=== PATIENT | male | born 1975 | race American Indian/Alaskan Native ===

== ENCOUNTER 2017-04-13 10:55 | Emergency (ER) | payer MEDICAID ==
[2017-04-13 12:02] LABS: ACETAMINOPHEN < 10 ug/mL (10-30)
--- NOTE | 2017-04-13 12:13 | EDM.PDOCBH ---
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 Pt stated he does not wont to live anymore because his girlfriend broke up with him and has already a new boyfriend but he does not have a girlfriend. Pt denies any acute medical issues, did not eat in the past few days. BP 144/93 RR 18 Pulse ox 98% Temp 36.9 pulse 98 Onset: Today Onset Date: 04/13/17 Onset Time: 08:00 Duration: Other (h/o depression) Location: Reports: Other (psych) Quality: Reports: Other (suicidal ideation) - Related Data Allergies Allergy/AdvReac Type Severity Reaction Status Date / Time No Known Allergies Allergy Verified 04/13/17 11:19 Home Meds: Home Meds Albuterol Sulfate [Proair Hfa] 2 puff INH BID 04/13/17 [History] Formoterol/Mometasone [Dulera 100 MCG/5 MCG] 2 puff INH BID 04/13/17 [History] Past Medical History Respiratory History: Reports: COPD Psychiatric History: Reports: Depression Social & Family History - Tobacco Use Smoking Status *Q: Former Smoker Used Tobacco, but Quit: Yes Month Tobacco Last Used: QUIT IN MAY 2016 - Caffeine Use Caffeine Use: Reports: Coffee, Energy Drinks, Soda - Recreational Drug Use Recreational Drug Use: No ED ROS GENERAL - Review of Systems Review Of Systems: See Below Constitutional: Reports: No Symptoms HEENT: Reports: No Symptoms Respiratory: Reports: No Symptoms Cardiovascular: Reports: No Symptoms Endocrine: Reports: No Symptoms GI/Abdominal: Reports: No Symptoms : Reports: No Symptoms Musculoskeletal: Reports: No Symptoms Skin: Reports: No Symptoms Neurological: Reports: No Symptoms Psychiatric: Reports: Depression, Suicidal Ideation Hematologic/Lymphatic: Reports: No Symptoms Immunologic: Reports: No Symptoms ED EXAM, BEHAVIORAL HEALTH - Physical Exam Exam: See Below Exam Limited By: No Limitations General Appearance: Alert, WD/WN, No Apparent Distress Eye Exam: Bilateral Eye: Normal Inspection Ears: Normal External Exam Nose: Normal Inspection Throat/Mouth: Normal Inspection Head: Atraumatic, Normocephalic Neck: Normal Inspection, Supple, Non-Tender Respiratory/Chest: No Respiratory Distress, Lungs Clear, Normal Breath Sounds Cardiovascular: Normal Peripheral Pulses, Regular Rate, Rhythm GI/Abdominal: Normal Bowel Sounds, Soft, Non-Tender, No Organomegaly (Male) Exam: Deferred Rectal (Males) Exam: Deferred Back Exam: Normal Inspection, Full Range of Motion Extremities: Normal Inspection, Normal Range of Motion, Non-Tender, No Pedal Edema Neurological: Alert, Normal Mood/Affect, CN II-XII Intact, Normal Cognition, Normal Gait Psychiatric: Alert, Normal Affect, Normal Cognition, Normal Mood Skin Exam: Warm, Dry, Intact, Normal color, No rash COURSE, BEHAVIORAL HEALTH COMP - Course Vital Signs: Last Vital Signs Temp 37.1 C 04/13/17 17:39 Pulse 73 04/13/17 17:39 Resp 18 04/13/17 17:39 BP 154/84 H 04/13/17 17:39 Pulse Ox 98 04/13/17 17:39 41 years old w sandi came to the ed with his mom after he was found at his home with a belt around his neck. Pt stated he does not wont to live anymore because his girlfriend broke up with him and has already a new boyfriend but he does not have a girlfriend. Pt denies any acute medical issues, did not eat in the past few days. BP 144/93 RR 18 Pulse ox 98% Temp 36.9 pulse 98 PE: WNWD W M NAD, poor historian, refuses to talk, Mom is present, gave HPI Labs: TSH .32 ETOH 0.10 UDS was neg Impression: Suicidal ideation, ETOH abuse ED course: [facility] consultation, recommending admitting to a psych Hospital Plan; trans fere by police to [facility] by the Police. Reexam: Pt was stable while here in the ed Orders, Labs, Meds: Laboratory Tests 04/13/17 04/13/17 04/13/17 Range/Units 11:40 11:40 11:40 WBC 7.2 (4.5-12.0) X10-3/uL RBC 4.78 (4.30-5.75) x10(6)uL Hgb 14.6 (11.5-15.5) g/dL Hct 42.6 (30.0-51.3) % MCV 89.1 (80-96) fL MCH 30.5 (27.7-33.6) pg MCHC 34.2 (32.2-35.4) g/dL RDW 12.4 (11.5-15.5) % Plt Count 310 (125-369) X10(3)uL MPV 7.3 L (7.4-10.4) fL Neut % (Auto) 78.0 (46-82) % Lymph % (Auto) 13.6 (13-37) % [place] % (Auto) 7.4 (4-12) % Eos % (Auto) 1 (1.0-5.0) % Baso % (Auto) 0 (0-2) % Neut # (Auto) 5.7 (1.6-8.3) # Lymph # (Auto) 1.0 (0.6-5.0) # [place] # (Auto) 0.5 (0.0-1.3) # Eos # (Auto) 0.0 (0.0-0.8) # Baso # (Auto) 0.0 (0.0-0.2) # Sodium 135 (135-145) mmol/L Potassium 3.7 (3.5-5.3) mmol/L Chloride 100 (100-110) mmol/L Carbon Dioxide 24 (23-29) mmol/L BUN 7 (5-20) mg/dL Creatinine 0.7 (0.6-1.3) mg/dL Est Cr Clr Drug Dosing 145.44 mL/min Estimated GFR (MDRD) > 60 (>60) BUN/Creatinine Ratio 10.0 (9-20) Glucose 142 H (80-116) mg/dL Calcium 8.9 (8.6-10.2) mg/dL TSH, Ultra Sensitive 0.32 L (0.4-5.5) nlU/mL Salicylates < 5.0 L (5.0-25.0) mg/dL Urine Opiates Screen (NEGATIVE) Ur Oxycodone Screen (NEGATIVE) Ur Propoxyphene Screen (NEGATIVE) Acetaminophen < 10 L (10-30) ug/mL Ur Barbituates Screen (NEGATIVE) Ur Tricyclics Screen (NEGATIVE) Ur Phencyclidine Scrn (NEGATIVE) Ur Amphetamine Screen (NEGATIVE) Urine MDMA Screen (NEGATIVE) U Benzodiazepines Scrn (NEGATIVE) U Cocaine Metab Screen (NEGATIVE) U Marijuana (THC) Screen (NEGATIVE) Ethyl Alcohol (<0.01) % 04/13/17 04/13/17 Range/Units 11:40 13:25 WBC (4.5-12.0) X10-3/uL RBC (4.30-5.75) x10(6)uL Hgb (11.5-15.5) g/dL Hct (30.0-51.3) % MCV (80-96) fL MCH (27.7-33.6) pg MCHC (32.2-35.4) g/dL RDW (11.5-15.5) % Plt Count (125-369) X10(3)uL MPV (7.4-10.4) fL Neut % (Auto) (46-82) % Lymph % (Auto) (13-37) % [place] % (Auto) (4-12) % Eos % (Auto) (1.0-5.0) % Baso % (Auto) (0-2) % Neut # (Auto) (1.6-8.3) # Lymph # (Auto) (0.6-5.0) # [place] # (Auto) (0.0-1.3) # Eos # (Auto) (0.0-0.8) # Baso # (Auto) (0.0-0.2) # Sodium (135-145) mmol/L Potassium (3.5-5.3) mmol/L Chloride (100-110) mmol/L Carbon Dioxide (23-29) mmol/L BUN (5-20) mg/dL Creatinine (0.6-1.3) mg/dL Est Cr Clr Drug Dosing mL/min Estimated GFR (MDRD) (>60) BUN/Creatinine Ratio (9-20) Glucose (80-116) mg/dL Calcium (8.6-10.2) mg/dL TSH, Ultra Sensitive (0.4-5.5) nlU/mL Salicylates (5.0-25.0) mg/dL Urine Opiates Screen Negative (NEGATIVE) Ur Oxycodone Screen Negative (NEGATIVE) Ur Propoxyphene Screen Negative (NEGATIVE) Acetaminophen (10-30) ug/mL Ur Barbituates Screen Negative (NEGATIVE) Ur Tricyclics Screen Negative (NEGATIVE) Ur Phencyclidine Scrn Negative (NEGATIVE) Ur Amphetamine Screen Negative (NEGATIVE) Urine MDMA Screen Negative (NEGATIVE) U Benzodiazepines Scrn Negative (NEGATIVE) U Cocaine Metab Screen Negative (NEGATIVE) U Marijuana (THC) Screen Negative (NEGATIVE) Ethyl Alcohol 0.10 H (<0.01) % Departure - Departure Time of Disposition: 18:00 Disposition: DC/Tfer to Psych Hosp/Unit 65 Condition: Fair Clinical Impression: Suicidal ideation - Discharge Information Referrals: Liza Johnson NP [Primary Care Provider] - Forms: ED Department Discharge
== END 2017-04-13 17:40 ==
LOC: FB.ED 10:55
DX: R45.851 Suicidal ideations (principal); F10.10 Alcohol abuse, uncomplicated; J44.9 Chronic obstructive pulmonary disease, unspecified; Z87.891 Personal history of nicotine dependence
CPT/HCPCS: 36415; 80048; 80305; 84443; 85025; 99285; G0480

== ENCOUNTER 2017-06-06 13:04 | Emergency (ER) | payer MEDICAID ==
[2017-06-06] MEDS ORDERED: Acetaminophen 500 MG Tab PO ONE (13:18)
[2017-06-06] MEDS ORDERED: Dicyclomine 10 MG Cap PO ONE (13:18)
--- NOTE | 2017-06-06 13:25 | EDM.PDOC ---
ED HPI GENERAL MEDICAL PROBLEM - General Chief Complaint: Abdominal Pain Stated Complaint: ABD PAIN Time Seen by Provider: 06/06/17 13:15 Source of Information: Reports: Patient, Old Records, RN History Limitations: Reports: No Limitations - History of Present Illness INITIAL COMMENTS - FREE TEXT/NARRATIVE: 41 yo male presents with LUQ abdominal pain that began about midnight last night. He had transient nausea upon awakening only. His bowel sounds seemed to be hyperactive. He has not eaten today. No fever. His morning BM was formed, but had some liquid in it. No known exposures. No blood in his stools. No hx of the same. He is missing work due to the pain. No self tx. He has no pHx of any abdominal surgeries. Onset: Gradual Onset Date: 06/06/17 Onset Time: 00:00 Duration: Hour(s):, Constant Location: Reports: Abdomen Quality: Reports: Dull Severity: Moderate Improves with: Reports: Rest (lying down) Worsens with: Reports: Movement Context: Reports: Other (unknown) Associated Symptoms: Reports: Loss of Appetite, Nausea/Vomiting (nausea now resolved, no vomiting). 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: Other (see below) (none) Left Abdominal Pain Score (Numeric/FACES): 4 - Related Data Allergies Allergy/AdvReac Type Severity Reaction Status Date / Time No Known Allergies Allergy Verified 06/06/17 13:11 Home Meds: Home Meds Albuterol Sulfate [Proair Hfa] 2 puff INH BID 04/13/17 [History] Formoterol/Mometasone [Dulera 100 MCG/5 MCG] 2 puff INH BID 04/13/17 [History] Past Medical History Respiratory History: Reports: COPD Psychiatric History: Reports: Depression Social & Family History - Tobacco Use Smoking Status *Q: Former Smoker Used Tobacco, but Quit: Yes Month Tobacco Last Used: quit 1 year ago - Caffeine Use Caffeine Use: Reports: Coffee - Recreational Drug Use Recreational Drug Use: No ED ROS GENERAL - Review of Systems Review Of Systems: See Below Constitutional: Reports: No Symptoms HEENT: Reports: No Symptoms Respiratory: Reports: No Symptoms Cardiovascular: Reports: No Symptoms Endocrine: Reports: No Symptoms GI/Abdominal: Reports: Abdominal Pain, Decreased Appetite, Nausea. Denies: Black Stool, Bloody Stool, Constipation, Diarrhea, Difficulty Swallowing, Distension, Flatus, Hematemesis, Hematochezia, Melena, Stool Incontinence, Vomiting : Reports: No Symptoms Musculoskeletal: Reports: No Symptoms Skin: Reports: No Symptoms Neurological: Reports: No Symptoms Psychiatric: Reports: No Symptoms ED EXAM, GI/ABD - Physical Exam Exam: See Below Exam Limited By: No Limitations General Appearance: Alert, WD/WN, No Apparent Distress Eyes: Bilateral: Normal Appearance Ears: Normal External Exam, Normal Canal, Hearing Grossly Normal, Normal TMs Nose: Normal Inspection, Normal Mucosa, No Blood Throat/Mouth: Normal Inspection, Normal Lips, Normal Teeth, Normal Oropharynx, Normal Voice, No Airway Compromise Head: Atraumatic, Normocephalic Neck: Normal Inspection, Supple Respiratory/Chest: No Respiratory Distress, Lungs Clear, Normal Breath Sounds, No Accessory Muscle Use Cardiovascular: Regular Rate, Rhythm, No Edema GI/Abdominal Exam: Soft, No Distention, No Mass, Tender (mild epigastric to LUQ tenderness.), Abnormal Bowel Sounds (increased). No: Guarding, Rigid, Rebound Back Exam: Normal Inspection. No: CVA Tenderness (R), CVA Tenderness (L) Extremities: Normal Inspection, Normal Range of Motion, Non-Tender, No Pedal Edema Neurological: Alert, Oriented, CN II-XII Intact, Normal Cognition, Normal Gait, Other (both upper extrems tremulous) Psychiatric: Normal Affect, Normal Mood Skin Exam: Warm, Dry, Intact, Normal Color, No Rash Lymphatic: No Adenopathy Course - Vital Signs Text/Narrative:: Acetaminophen 1000 mg po, dicyclomine 30 mg po Last Recorded V/S: Last Vital Signs Temp 36.8 C 06/06/17 13:15 Pulse 78 06/06/17 13:15 Resp 18 06/06/17 13:15 BP 152/90 H 06/06/17 13:15 Pulse Ox 97 06/06/17 13:15 - Orders/Labs/Meds Labs: Laboratory Tests 06/06/17 06/06/17 06/06/17 Range/Units 13:25 13:25 13:27 WBC 5.4 (4.5-12.0) X10-3/uL RBC 4.86 (4.30-5.75) x10(6)uL Hgb 14.6 (11.5-15.5) g/dL Hct 43.7 (30.0-51.3) % MCV 89.8 (80-96) fL MCH 30.0 (27.7-33.6) pg MCHC 33.4 (32.2-35.4) g/dL RDW 14.0 (11.5-15.5) % Plt Count 211 (125-369) X10(3)uL C-Reactive Protein (0.5-0.9) mg/dL Amylase (25-115) U/L Urine Color Yellow (YELLOW) Urine Appearance Clear (CLEAR) Urine pH 8.0 H (5.0-6.5) Ur Specific [place] 1.010 (1.010-1.025) Urine Protein Negative (NEGATIVE) mg/dL Urine Glucose (UA) Normal (NEGATIVE) mg/dL Urine Ketones 15 H (NEGATIVE) mg/dL Urine Occult Blood Negative (NEGATIVE) Urine Nitrite Negative (NEGATIVE) Urine Bilirubin Negative (NEGATIVE) Urine Urobilinogen Normal (NEGATIVE) mg/dL Ur Leukocyte Esterase Negative (NEGATIVE) Urine RBC Not seen (0) Urine WBC 0-5 (0) Ur Squamous Epith Cells Rare (NS,R,O) Urine Bacteria Rare H (NS) Urine Opiates Screen Negative (NEGATIVE) Ur Oxycodone Screen Negative (NEGATIVE) Ur Propoxyphene Screen Negative (NEGATIVE) Ur Barbituates Screen Negative (NEGATIVE) Ur Tricyclics Screen Negative (NEGATIVE) Ur Phencyclidine Scrn Negative (NEGATIVE) Ur Amphetamine Screen Negative (NEGATIVE) Urine MDMA Screen Negative (NEGATIVE) U Benzodiazepines Scrn Negative (NEGATIVE) U Cocaine Metab Screen Negative (NEGATIVE) U Marijuana (THC) Screen Negative (NEGATIVE) 06/06/17 06/06/17 Range/Units 13:27 13:27 WBC (4.5-12.0) X10-3/uL RBC (4.30-5.75) x10(6)uL Hgb (11.5-15.5) g/dL Hct (30.0-51.3) % MCV (80-96) fL MCH (27.7-33.6) pg MCHC (32.2-35.4) g/dL RDW (11.5-15.5) % Plt Count (125-369) X10(3)uL C-Reactive Protein < 0.2 L (0.5-0.9) mg/dL Amylase 23 L (25-115) U/L Urine Color (YELLOW) Urine Appearance (CLEAR) Urine pH (5.0-6.5) Ur Specific [place] (1.010-1.025) Urine Protein (NEGATIVE) mg/dL Urine Glucose (UA) (NEGATIVE) mg/dL Urine Ketones (NEGATIVE) mg/dL Urine Occult Blood (NEGATIVE) Urine Nitrite (NEGATIVE) Urine Bilirubin (NEGATIVE) Urine Urobilinogen (NEGATIVE) mg/dL Ur Leukocyte Esterase (NEGATIVE) Urine RBC (0) Urine WBC (0) Ur Squamous Epith Cells (NS,R,O) Urine Bacteria (NS) Urine Opiates Screen (NEGATIVE) Ur Oxycodone Screen (NEGATIVE) Ur Propoxyphene Screen (NEGATIVE) Ur Barbituates Screen (NEGATIVE) Ur Tricyclics Screen (NEGATIVE) Ur Phencyclidine Scrn (NEGATIVE) Ur Amphetamine Screen (NEGATIVE) Urine MDMA Screen (NEGATIVE) U Benzodiazepines Scrn (NEGATIVE) U Cocaine Metab Screen (NEGATIVE) U Marijuana (THC) Screen (NEGATIVE) Meds: Medications Discontinued Medications Generic Name Dose Route Start Last Admin Trade Name Ruizq PRN Reason Stop Dose Admin Acetaminophen 1,000 mg 06/06/17 13:18 06/06/17 13:28 Tylenol Extra Strength PO 06/06/17 13:19 1,000 mg ONETIME ONE Administration Dicyclomine HCl 30 mg 06/06/17 13:18 06/06/17 13:28 Bentyl PO 06/06/17 13:19 30 mg ONETIME ONE Administration Departure - Departure Time of Disposition: 14:00 Disposition: Home, Self-Care 01 Condition: Good Clinical Impression: Abdominal pain Qualifiers: Abdominal location: left upper quadrant Qualified Code(s): R10.12 - Left upper quadrant pain - Discharge Information Referrals: Yonas Edmondson PA [Primary Care Provider] - Forms: ED Department Discharge
== END 2017-06-06 13:58 | disposition home or self-care (01) ==
LOC: FB.ED 13:04
DX: R10.12 Left upper quadrant pain (principal); Z87.891 Personal history of nicotine dependence
CPT/HCPCS: 36415; 80305; 81001; 82150; 85027; 86140; 99284; A9270

== ENCOUNTER 2017-07-15 15:33 | Observation (INO) | payer MEDICAID ==
[2017-07-15] MEDS ORDERED: Sodium Chloride 0.9% 1,000 ML IV ONE ×2 (15:46→17:40)
[2017-07-15] MEDS ORDERED: Thiamine 200 MG/2 ML MDV IM STA (15:47)
[2017-07-15] MEDS: Sodium Chloride 0.9% 10 ML Syringe FLUSH PRN (16:05)
[2017-07-15 16:34] LABS: ACETAMINOPHEN < 2 ug/mL (10-30)
--- NOTE | 2017-07-15 17:46 | EDM.PDOCBH ---
ED HPI GENERAL MEDICAL PROBLEM - General Chief Complaint: Drug or Alcohol Abuse Stated Complaint: INTOXICATED Time Seen by Provider: 07/15/17 15:41 Source of Information: Reports: Patient, Family History Limitations: Reports: Intoxication - History of Present Illness INITIAL COMMENTS - FREE TEXT/NARRATIVE: 41 y.o.w.m with a h/o ETOH abuse came to the ed with his parents due to suicidal attempt by heavy ETOH intake. Pt came by wheel chair to the ed, uncooperative. As per parents, his girlfriend quit on him one week ago, which made him to drink more ETOH. BP 162/100 RR 16 Pulse 116 Temp 36.4 O2 sat 96% on RA Onset Date: 07/15/17 Onset Time: 08:00 Duration: Day(s):, Getting Worse Location: Reports: Generalized Severity: Severe (intoxicated) Context: Reports: Other (Pt came to the ed with his parents because of suicidal attempt by drinking ETOH) - Related Data Allergies Allergy/AdvReac Type Severity Reaction Status Date / Time No Known Allergies Allergy Verified 07/15/17 16:53 Home Meds: Home Meds Albuterol [Ventolin HFA] 2 inhalation INH Q4H PRN 07/15/17 [History] Fluticasone/Salmeterol [Fluticasone-Salmeterol 113-14] 1 inh INH BID 07/15/17 [ History] Past Medical History Respiratory History: Reports: COPD Psychiatric History: Reports: Depression Social & Family History - Tobacco Use Smoking Status *Q: Never Smoker Used Tobacco, but Quit: Yes Month Tobacco Last Used: quit 1 year ago - Caffeine Use Caffeine Use: Reports: Coffee - Recreational Drug Use Recreational Drug Use: No ED ROS GENERAL - Review of Systems Review Of Systems: Unable To Obtain (pt refused to talk) ED EXAM, BEHAVIORAL HEALTH - Physical Exam Exam: See Below Exam Limited By: Intoxication General Appearance: Alert, WD/WN, Mild Distress Eye Exam: Bilateral Eye: Normal Inspection Ears: Normal External Exam Nose: Normal Inspection Throat/Mouth: Normal Inspection, Normal Lips, No Airway Compromise, Other (dry mucosal membrane) Head: Atraumatic, Normocephalic Neck: Normal Inspection, Supple, Non-Tender, Full Range of Motion Respiratory/Chest: No Respiratory Distress, Lungs Clear, Normal Breath Sounds Cardiovascular: Normal Peripheral Pulses, Regular Rate, Rhythm, No Edema, No Gallop, No Murmur GI/Abdominal: Normal Bowel Sounds, Soft (Male) Exam: Deferred Rectal (Males) Exam: Deferred Back Exam: Normal Inspection Extremities: Normal Inspection Neurological: Alert, CN II-XII Intact Psychiatric: Alert, Flat Affect, Uncooperative Skin Exam: Warm, Dry COURSE, BEHAVIORAL HEALTH COMP - Course Vital Signs: Last Vital Signs Temp 36.9 C 07/16/17 07:52 Pulse 80 07/16/17 04:45 Resp 18 07/16/17 07:52 BP 139/81 07/16/17 07:52 Pulse Ox 95 07/16/17 07:52 41 y.o.w.m with a h/o ETOH abuse came to the ed with his parents due to suicidal attempt by heavy ETOH intake. Pt came by wheel chair to the ed, uncooperative. As per parents, his girlfriend quit on him one week ago, which made him to drink more ETOH. BP 162/100 RR 16 Pulse 116 Temp 36.4 O2 sat 96% on RA PE: Intoxicated 41 y.o.w.m, refused to talk Labs: ETOH 440, Hypochloremia UDS neg Impression: ETOH intoxication, suicidal ideation/attempt, dehydration, not cooperative Tx: Thiamin, NS Pt was signed out to Dr. Jones at 7 pm due to shift changes pending labs and Tx Orders, Labs, Meds: Laboratory Tests 07/15/17 07/15/17 07/15/17 Range/Units 16:00 16:00 16:00 WBC 3.7 L (4.5-12.0) X10-3/uL RBC 5.57 (4.30-5.75) x10(6)uL Hgb 16.7 H (11.5-15.5) g/dL Hct 50.1 (30.0-51.3) % MCV 90.0 (80-96) fL MCH 30.0 (27.7-33.6) pg MCHC 33.3 (32.2-35.4) g/dL RDW 15.1 (11.5-15.5) % Plt Count 119 L (125-369) X10(3)uL MPV 7.7 (7.4-10.4) fL Neut % (Auto) 48.5 (46-82) % Lymph % (Auto) 41.9 H (13-37) % [place] % (Auto) 7.5 (4-12) % Eos % (Auto) 1 (1.0-5.0) % Baso % (Auto) 1 (0-2) % Neut # (Auto) 1.8 (1.6-8.3) # Lymph # (Auto) 1.6 (0.6-5.0) # [place] # (Auto) 0.3 (0.0-1.3) # Eos # (Auto) 0.0 (0.0-0.8) # Baso # (Auto) 0.0 (0.0-0.2) # Sodium 140 (135-145) mmol/L Potassium 4.1 (3.5-5.3) mmol/L Chloride 95 L (100-110) mmol/L Carbon Dioxide 29 (21-32) mmol/L BUN 13 (7-18) mg/dL Creatinine 0.8 (0.70-1.30) mg/dL Est Cr Clr Drug Dosing 127.26 mL/min Estimated GFR (MDRD) > 60 (>60) BUN/Creatinine Ratio 16.3 (9-20) Glucose 87 (80-116) mg/dL Calcium 8.8 (8.6-10.2) mg/dL Magnesium (1.8-2.5) mg/dL TSH, Ultra Sensitive 1.96 (0.36-3.74) IU/mL Salicylates 1.3 L (2.8-20.0) mg/dL Urine Opiates Screen (NEGATIVE) Ur Oxycodone Screen (NEGATIVE) Ur Propoxyphene Screen (NEGATIVE) Acetaminophen < 2 L (10-30) ug/mL Ur Barbituates Screen (NEGATIVE) Ur Tricyclics Screen (NEGATIVE) Ur Phencyclidine Scrn (NEGATIVE) Ur Amphetamine Screen (NEGATIVE) Urine MDMA Screen (NEGATIVE) U Benzodiazepines Scrn (NEGATIVE) U Cocaine Metab Screen (NEGATIVE) U Marijuana (THC) Screen (NEGATIVE) Ethyl Alcohol 0.48 H* (<0.03) % 07/15/17 07/15/17 Range/Units 16:00 19:45 WBC (4.5-12.0) X10-3/uL RBC (4.30-5.75) x10(6)uL Hgb (11.5-15.5) g/dL Hct (30.0-51.3) % MCV (80-96) fL MCH (27.7-33.6) pg MCHC (32.2-35.4) g/dL RDW (11.5-15.5) % Plt Count (125-369) X10(3)uL MPV (7.4-10.4) fL Neut % (Auto) (46-82) % Lymph % (Auto) (13-37) % [place] % (Auto) (4-12) % Eos % (Auto) (1.0-5.0) % Baso % (Auto) (0-2) % Neut # (Auto) (1.6-8.3) # Lymph # (Auto) (0.6-5.0) # [place] # (Auto) (0.0-1.3) # Eos # (Auto) (0.0-0.8) # Baso # (Auto) (0.0-0.2) # Sodium (135-145) mmol/L Potassium (3.5-5.3) mmol/L Chloride (100-110) mmol/L Carbon Dioxide (21-32) mmol/L BUN (7-18) mg/dL Creatinine (0.70-1.30) mg/dL Est Cr Clr Drug Dosing mL/min Estimated GFR (MDRD) (>60) BUN/Creatinine Ratio (9-20) Glucose (80-116) mg/dL Calcium (8.6-10.2) mg/dL Magnesium 2.6 H (1.8-2.5) mg/dL TSH, Ultra Sensitive (0.36-3.74) IU/mL Salicylates (2.8-20.0) mg/dL Urine Opiates Screen Negative (NEGATIVE) Ur Oxycodone Screen Negative (NEGATIVE) Ur Propoxyphene Screen Negative (NEGATIVE) Acetaminophen (10-30) ug/mL Ur Barbituates Screen Negative (NEGATIVE) Ur Tricyclics Screen Negative (NEGATIVE) Ur Phencyclidine Scrn Negative (NEGATIVE) Ur Amphetamine Screen Negative (NEGATIVE) Urine MDMA Screen Negative (NEGATIVE) U Benzodiazepines Scrn Negative (NEGATIVE) U Cocaine Metab Screen Negative (NEGATIVE) U Marijuana (THC) Screen Negative (NEGATIVE) Ethyl Alcohol (<0.03) % Medications Discontinued Medications Generic Name Dose Route Start Last Admin Trade Name Freq PRN Reason Stop Dose Admin Sodium Chloride 1,000 mls @ 999 mls/hr 07/15/17 15:46 07/15/17 16:03 Normal Saline IV 07/15/17 16:46 999 mls/hr .BOLUS ONE Administration Sodium Chloride 1,000 mls @ 999 mls/hr 07/15/17 17:40 07/15/17 17:42 Normal Saline IV 07/15/17 18:40 999 mls/hr .BOLUS ONE Administration Sodium Chloride 1,000 mls @ 100 mls/hr 07/15/17 20:30 07/16/17 06:30 Normal Saline IV 100 mls/hr ASDIRECTED SUSIE Administration Lorazepam 1 mg 07/15/17 20:20 07/16/17 07:50 Ativan IVPUSH 1 mg Q4H PRN Administration Agitation Nicotine 7 mg 07/16/17 09:00 07/16/17 08:41 Habitrol TRDERM 7 mg DAILY SUSIE Administration Nicotine Polacrilex 4 mg 07/16/17 08:20 Nicorelief CHEW Q2H PRN Withdrawal Symptoms Sodium Chloride 10 ml 07/15/17 16:04 07/16/17 04:48 Saline Flush FLUSH 10 ml ASDIRECTED PRN Administration Keep Vein Open Thiamine HCl 100 mg 07/15/17 15:47 07/15/17 15:56 Vitamin B-1 IM 07/15/17 15:48 100 mg ONETIME STA Administration Departure - Departure Time of Disposition: 21:00 Disposition: Refer to Observation Condition: Fair Clinical Impression: ETOH abuse - Discharge Information
[2017-07-15] MEDS: Sodium Chloride 0.9% 1,000 ML IV SCH (21:16)
[2017-07-15] MEDS: LORazepam 2 MG/ML MDV IVPUSH PRN (23:36)
--- NOTE | 2017-07-16 00:52 | ER ---
DATE SEEN: 07/15/2017 ADDENDUM: I saw this patient after Dr. Arnold. He had come in because of alcohol intoxication. He has been drinking most of the day. He has a history of alcohol intoxication. He complains that he would like to kill himself due to depression. He has a history of prior admission to [facility]. He has had a plan of buying a gun, but [employer] does not sell them. His parents are concerned about his welfare and safety and they have requested help for psychiatric admission, possibly chemical dependency treatment. REVIEW OF SYSTEMS: No nausea or vomiting, seizure disorder, or hallucinations. ALLERGIES: None. MEDICATIONS: Currently, he does not take any medications. SOCIAL HISTORY: He does not smoke or use any drugs. PHYSICAL EXAMINATION: VITAL SIGNS: His blood pressure is 162/100, pulse is 115. ENT: Negative. HEAD: Normal size. EYES: Normal. CHEST: Clear. MENTAL STATUS: Flat affect. LABORATORY DATA: Alcohol level 0.48. Urine drug screen negative. IMPRESSION: 1. Alcohol intoxication. 2. Hypertension. 3. Suicidal ideation. PLAN: Admit for observation. We called [facility], but they were unable to take him because of the alcohol level. We will keep him overnight and possibly discharge him in the morning to [facility]. /[id number] JESSICA/KRISH
[2017-07-16] MEDS: LORazepam 2 MG/ML MDV IVPUSH PRN ×2 (04:47→07:50)
[2017-07-16] MEDS: Sodium Chloride 0.9% 10 ML Syringe FLUSH PRN (04:48)
[2017-07-16] MEDS: Sodium Chloride 0.9% 1,000 ML IV SCH (06:30)
[2017-07-16] MEDS ORDERED: Nicotine Polacrilex 2 MG Gum CHEW PRN (08:20)
--- NOTE | 2017-07-16 08:23 | PCM.HP ---
H&P History of Present Illness - General Date of Service: 07/16/17 Admit Problem/Dx: Admission Diagnosis/Problem Admission Diagnosis/Problem Alcohol intoxication Source of Information: Patient, Family History Limitations: Reports: Intoxication - History of Present Illness Initial Comments - Free Text/Narative: Beau is a 41-year-old male that was brought to the ER last night. I saw him there shortly because of alcohol dependence and depression symptoms. He has a history of alcohol abuse and has been drinking nonstop for the last few days.It' s unclear when the last time he took the last drink. The family brought him in because of concerns of safety- patient was not responding to the telephone messages and was not opening his apartment. He himself states that is very depressed and has at times had plans of plan is on suicide. He mentioned that he would like to kill himself by a GUN but been unable to obtain one. He was hospitalised in March at [facility] for alcohol abuse and depression and "bipolar disorder". He's not been working for the last few months and has quit taking his medications. He apparently also broke up with his girlfriend a few months ago and that has made things worse. - Related Data Allergies/Adverse Reactions: Allergies Allergy/AdvReac Type Severity Reaction Status Date / Time No Known Allergies Allergy Verified 07/15/17 16:53 Home Medications: Home Meds Albuterol [Ventolin HFA] 2 inhalation INH Q4H PRN 07/15/17 [History] Fluticasone/Salmeterol [Fluticasone-Salmeterol 113-14] 1 inh INH BID 07/15/17 [ History] Past Medical History Respiratory History: Reports: COPD Musculoskeletal History: Reports: Fracture Psychiatric History: Reports: Depression, Psych Hospitalization(s), Suicidal Ideation Other Psychiatric History: had been on medications for but did not go back in for reassessment and renewal of meds - Past Surgical History Other Respiratory Surgeries/Procedures: on inhalers but not consistant with usage Musculoskeletal Surgical History: Reports: Shoulder Surgery Other Musculoskeletal Surgeries/Procedures:: states had surgery on a broken left shoulder Social & Family History - Tobacco Use Smoking Status *Q: Never Smoker Years of Tobacco use: 20 Packs/Tins Daily: 1 Used Tobacco, but Quit: Yes Month Tobacco Last Used: quit 1 year ago Second Hand Smoke Exposure: No - Caffeine Use Caffeine Use: Reports: Coffee Other Caffeine Use: occasionally coffee, soda - Alcohol Use Days Per Week of Alcohol Use: 7 Number of Drinks Per Day: 10 Total Drinks Per Week: 70 Date of Last Drink: 07/15/17 Time of Last Drink: 12:00 - Recreational Drug Use Recreational Drug Use: No H&P Review of Systems - Review of Systems: Review Of Systems: ROS reveals no pertinent complaints other than HPI. Exam - Exam Exam: See Below - Vital Signs Vital Signs: Last Vital Signs Temp 98.5 F 07/16/17 07:52 Pulse 80 07/16/17 04:45 Resp 18 07/16/17 07:52 BP 139/81 07/16/17 07:52 Pulse Ox 95 07/16/17 07:52 Weight: 66.395 kg - Exam General: Alert, Oriented, 4 HEENT: PERRLA, Hearing Intact, Mucosa Moist & Sparkman, Nares Patent, Normal Nasal Septum, Posterior Pharynx Clear, Conjunctiva Clear, EOMI, EACs Clear, TMs Clear Neck: Supple, Trachea Midline, 2 Lungs: Clear to Auscultation, Normal Respiratory Effort Cardiovascular: Regular Rate, Regular Rhythm GI/Abdominal Exam: Normal Bowel Sounds, Soft, Non-Tender, No Organomegaly, No Distention, No Abnormal Bruit, No Mass, Pelvis Stable (Male) Exam: Deferred Rectal (Males) Exam: Deferred Back Exam: Normal Inspection, Full Range of Motion, NT Extremities: Normal Inspection, Normal Range of Motion, Non-Tender, No Pedal Edema, Normal Capillary Refill Skin: Warm, Dry, Intact Neurological: Cranial Nerves Intact, Reflexes Equal Bilateral Neuro Extensive - Mental Status: Alert, Oriented x3, Normal Mood/Affect, Normal Cognition Neuro Extensive - Motor, Sensory, Reflexes: CN II-XII Intact, Normal Gait, Normal Reflexes Psychiatric: Alert, Depressed, Suicidal Ideation, Withdrawal Symptoms - Patient Data Lab Results Last 24 hrs: Laboratory Results - last 24 hr 07/16/17 07/16/17 07/16/17 Range/Units 06:30 06:30 06:30 WBC 3.1 L (4.5-12.0) X10-3/uL RBC 4.19 L (4.30-5.75) x10(6)uL Hgb 13.2 D (11.5-15.5) g/dL Hct 38.1 D (30.0-51.3) % MCV 90.9 (80-96) fL MCH 31.4 (27.7-33.6) pg MCHC 34.5 (32.2-35.4) g/dL RDW 14.9 (11.5-15.5) % Plt Count 78 L (125-369) X10(3)uL MPV 7.5 (7.4-10.4) fL Neut % (Auto) 58.5 (46-82) % Lymph % (Auto) 27.7 (13-37) % [place] % (Auto) 9.5 (4-12) % Eos % (Auto) 2 (1.0-5.0) % Baso % (Auto) 2 (0-2) % Neut # (Auto) 1.7 (1.6-8.3) # Lymph # (Auto) 0.9 (0.6-5.0) # [place] # (Auto) 0.3 (0.0-1.3) # Eos # (Auto) 0.1 (0.0-0.8) # Baso # (Auto) 0.1 (0.0-0.2) # Sodium 138 (135-145) mmol/L Potassium 4.1 (3.5-5.3) mmol/L Chloride 99 L (100-110) mmol/L Carbon Dioxide 30 (21-32) mmol/L BUN 10 (7-18) mg/dL Creatinine 0.6 L (0.70-1.30) mg/dL Est Cr Clr Drug Dosing 155.23 mL/min Estimated GFR (MDRD) > 60 (>60) BUN/Creatinine Ratio 16.7 (9-20) Glucose 113 (80-116) mg/dL Calcium 8.5 L (8.6-10.2) mg/dL Total Bilirubin 1.0 (0.1-1.3) mg/dL AST 306 H* (5-25) IU/L ALT 188 H* (12-36) U/L Alkaline Phosphatase 124 H (56-112) IU/L Total Protein 7.5 (6.0-8.0) g/dL Albumin 3.6 (3.5-5.2) g/dL Globulin 3.9 g/dL Albumin/Globulin Ratio 0.9 Ethyl Alcohol 0.11 H (<0.03) % Result Diagrams: 07/16/17 06:30 07/16/17 06:30 *Q Meaningful Use (ADM) - VTE *Q VTE Criteria *Q: - Stroke *Q Stroke Criteria *Q: - AMI *Q AMI Criteria *Q: - Problem List (1) ETOHism SNOMED Code(s): 4293171 ICD Code: F10.20 - ALCOHOL DEPENDENCE, UNCOMPLICATED Status: Acute Current Visit: Yes (2) Suicidal ideation SNOMED Code(s): 1533242 ICD Code: R45.851 - SUICIDAL IDEATIONS Status: Acute Current Visit: No (3) Alcohol withdrawal SNOMED Code(s): 250234759 ICD Code: F10.239 - ALCOHOL DEPENDENCE WITH WITHDRAWAL, UNSPECIFIED Status : Acute Current Visit: Yes Qualifiers: Complication of substance-induced condition: uncomplicated Qualified Code(s ): F10.230 - Alcohol dependence with withdrawal, uncomplicated Problem List Initiated/Reviewed/Updated: Yes Orders Last 24hrs: Active Orders 24 hr Category Date Time Status Regular Diet [DIET] Diet 07/16/17 Breakfast Active Sodium Chloride 0.9% [Normal Saline] 1,000 ml Med 07/15/17 20:30 Active IV ASDIRECTED Medication Orders Sodium Chloride (Normal Saline) 1,000 mls @ 100 mls/hr IV ASDIRECTED SUSIE Last Admin: 07/16/17 06:30 Dose: 100 mls/hr Infusion: 07/16/17 06:30 Dose: 100 mls/hr Admin: 07/15/17 21:16 Dose: 100 mls/hr Lorazepam (Ativan) 1 mg IVPUSH Q4H PRN PRN Reason: Agitation Last Admin: 07/16/17 07:50 Dose: 1 mg Admin: 07/16/17 04:47 Dose: 1 mg Admin: 07/15/17 23:36 Dose: 1 mg Sodium Chloride (Saline Flush) 10 ml FLUSH ASDIRECTED PRN PRN Reason: Keep Vein Open Last Admin: 07/16/17 04:48 Dose: 10 ml Admin: 07/15/17 16:05 Dose: 10 ml Assessment/Plan Comment:: Admit patient for observation. Hep-Lock IV. His ETOH level is down to 0.11. Transfer patient to [facility] voluntarily.
[2017-07-16] MEDS ORDERED: Nicotine 7 MG/24 Hr Patch TRDERM SCH (09:00)
--- NOTE | 2017-07-17 09:13 | DISCH ---
DISCHARGE DATE: 07/16/2017 REASON FOR ADMISSION: 1. Suicidal ideation. 2. Major depression. 3. Alcohol intoxication. DISCHARGE DIAGNOSES: 1. Suicidal ideation. 2. Major depression. 3. Alcohol intoxication. CONSULTATIONS: None. PROCEDURES: None. BRIEF HISTORY: A 41-year-old male, brought in on the night of Monday because of alcohol drinking, nonstop binge drinking and possibly making suicidal gestures. Was admitted overnight because of high alcohol level of 0.48. Was given IV fluids and lorazepam p.r.n. for withdrawal symptoms. In the morning, alcohol level was down to 0.11. [facility] agreed to take him for chemical dependency treatment and depression, so he was transferred voluntarily. I spent more than 35 minutes in the discharge of this patient. /[id number] JESSICA/KRISH
== END 2017-07-16 10:13 ==
LOC: FB.ED 15:33 → FB.ICU 20:20 → FB.ED 20:26
PROVIDERS: ADMIT Family Medicine; ATTEND Family Medicine
DX: R45.851 Suicidal ideations (principal); F32.9 Major depressive disorder, single episode, unspecified; F10.129 Alcohol abuse with intoxication, unspecified; J44.9 Chronic obstructive pulmonary disease, unspecified; Z79.51 Long term (current) use of inhaled steroids; Z87.891 Personal history of nicotine dependence; Z98.890 Other specified postprocedural states; Y90.2 Blood alcohol level of 40-59 mg/100 ml
CPT/HCPCS: 36415; 80048; 80053; 80305; 83735; 84443; 85025; 96360; 96361; 96372; 99285; A9270; G0480; J2060; J3411; J7040; J7050

== ENCOUNTER 2019-11-03 10:04 | Emergency (ER) | payer MEDICAID ==
[2019-11-03] MEDS ORDERED: LORazepam 0.5 MG Tab PO ONE (10:05)
[2019-11-03] MEDS ORDERED: Ondansetron 4 MG Tab.DIS PO ONE ×3 (10:05→16:54)
[2019-11-03] MEDS ORDERED: LORazepam 1 MG Tab PO ONE ×6 (10:36→18:05)
[2019-11-03] MEDS ORDERED: Thiamine 100 MG Tab PO ONE (10:38)
--- NOTE | 2019-11-03 10:49 | EDM.PDOCBH ---
ED HPI GENERAL MEDICAL PROBLEM - General Chief Complaint: Drug or Alcohol Abuse Stated Complaint: ALCOHOL WITHDRAWALS Time Seen by Provider: 11/03/19 10:35 Source of Information: Reports: Patient, Old Records, RN History Limitations: Reports: No Limitations - History of Present Illness INITIAL COMMENTS - FREE TEXT/NARRATIVE: 43 yo male presents with sx's of alcohol withdrawal after drinking heavily for a week. He stopped drinking about 7 hrs ago and now has nausea, vomiting and tremors. He says he drank because he had nothing better to do. Stopped drinking because he ran out of alcohol. His mother brought him in today. No bleeding. Has been tx'd for both alcohol dependence and mental health reasons in the past. Preferred alcoholic beverage is beer. Unable to tell me how much he has been consuming. Onset: Today (of withdrawal sx's), Gradual Onset Date: 11/03/19 Duration: Hour(s):, Getting Worse Location: Reports: Generalized Quality: Reports: Ache (in abdomen) Severity: Moderate Improves with: Reports: None Worsens with: Reports: Other (duration away from alcohol) Context: Reports: Other (See HPI) Associated Symptoms: Reports: Loss of Appetite, Nausea/Vomiting. Denies: Seizure Treatments TEACHERS ASSISTANT: Reports: Other (see below) (none) generalized pain Pain Score (Numeric/FACES): 3 - Related Data Allergies Allergy/AdvReac Type Severity Reaction Status Date / Time No Known Allergies Allergy Verified 11/03/19 10:27 Home Meds: Home Meds Albuterol [Ventolin HFA] 2 inhalation INH Q4H PRN 07/15/17 [History] Fluticasone/Salmeterol [Fluticasone-Salmeterol 113-14 MCG Powder Inh] 1 inh INH BID 07/15/17 [History] LORazepam [Ativan] 1 mg PO Q4H PRN #8 tab 11/03/19 [Rx] Past Medical History Respiratory History: Reports: COPD Musculoskeletal History: Reports: Fracture Psychiatric History: Reports: Depression Other Psychiatric History: had been on medications for but did not go back in for reassessment and renewal of meds - Past Surgical History Other Respiratory Surgeries/Procedures: on inhalers but not consistant with usage Musculoskeletal Surgical History: Reports: Shoulder Surgery Other Musculoskeletal Surgeries/Procedures:: states had surgery on a broken left shoulder Social & Family History - Caffeine Use Caffeine Use: Reports: Coffee Other Caffeine Use: occasionally coffee, soda ED ROS GENERAL - Review of Systems Review Of Systems: See Below Constitutional: Reports: Malaise, Decreased Appetite HEENT: Reports: No Symptoms Respiratory: Reports: No Symptoms Cardiovascular: Reports: Palpitations Endocrine: Reports: No Symptoms GI/Abdominal: Reports: Abdominal Pain, Anorexia, Nausea, Vomiting. Denies: Black Stool, Bloody Stool, Constipation, Diarrhea, Distension, Hematemesis, Hematochezia, Melena : Reports: No Symptoms Musculoskeletal: Reports: No Symptoms Skin: Reports: No Symptoms Neurological: Reports: Tremors Psychiatric: Reports: Anxiety, Depression. Denies: Suicidal Ideation ED EXAM, BEHAVIORAL HEALTH - Physical Exam Exam: See Below Exam Limited By: No Limitations General Appearance: Alert, WD/WN, Mild Distress Eye Exam: Bilateral Eye: Normal Inspection Ears: Normal External Exam, Normal Canal, Hearing Grossly Normal, Normal TMs Nose: Normal Inspection, No Blood Throat/Mouth: Normal Inspection, Normal Lips, Normal Oropharynx, Normal Voice, No Airway Compromise Head: Atraumatic, Normocephalic Neck: Normal Inspection Respiratory/Chest: No Respiratory Distress, Lungs Clear, Normal Breath Sounds, No Accessory Muscle Use Cardiovascular: Regular Rate, Rhythm, No Edema, Tachycardia GI/Abdominal: Normal Bowel Sounds, Soft, No Distention, Tender (diffusely). No : Distended Back Exam: Normal Inspection Extremities: Normal Inspection, Normal Range of Motion, Non-Tender, No Pedal Edema Neurological: Alert, Normal Mood/Affect, CN II-XII Intact, No Motor/Sensory Deficits, Oriented x 3, Tremor Psychiatric: Alert, Normal Affect, Oriented, Inattentive Skin Exam: Warm, Dry, Intact, Normal color, No rash COURSE, BEHAVIORAL HEALTH COMP - Course Vital Signs: Last Vital Signs Temp 36.4 C 11/03/19 15:30 Pulse 88 11/03/19 15:30 Resp 17 11/03/19 15:30 BP 120/59 L 11/03/19 15:30 Pulse Ox 97 11/03/19 15:30 Orders, Labs, Meds: Active Orders 24 hr Category Date Time Status Sodium Chloride 0.9% [Saline Flush] Med 11/03/19 11:53 Active 10 ml FLUSH ASDIRECTED PRN Saline Lock Insert [OM.PC] Routine Oth 11/03/19 11:53 Ordered Medication Orders Sodium Chloride (Saline Flush) 10 ml FLUSH ASDIRECTED PRN PRN Reason: Keep Vein Open Last Admin: 11/03/19 12:08 Dose: 10 ml Laboratory Tests 11/03/19 11/03/19 11/03/19 Range/Units 10:45 10:45 10:45 WBC 2.8 L (4.5-12.0) X10-3/uL RBC 4.84 (4.30-5.75) x10(6)uL Hgb 15.2 (13.5-17.8) g/dL Hct 46.2 (30.0-51.3) % MCV 95.4 (80-96) fL MCH 31.5 (27.7-33.6) pg MCHC 33.0 (32.2-35.4) g/dL RDW 15.0 (11.5-15.5) % Plt Count 66 L (125-369) X10(3)uL Sodium 137 (135-145) mmol/L Potassium 4.0 (3.5-5.3) mmol/L Chloride 102 (100-110) mmol/L Carbon Dioxide 25 (21-32) mmol/L BUN 11 (7-18) mg/dL Creatinine 0.8 (0.70-1.30) mg/dL Est Cr Clr Drug Dosing TNP Estimated GFR (MDRD) > 60 (>60) BUN/Creatinine Ratio 13.8 (9-20) Glucose 88 (80-116) mg/dL Calcium 8.6 (8.6-10.2) mg/dL Total Bilirubin 1.0 (0.1-1.3) mg/dL AST 282 H* (5-25) IU/L ALT 213 H* D (12-36) U/L Alkaline Phosphatase 174 H (56-112) IU/L Total Protein 8.1 H (6.0-8.0) g/dL Albumin 4.0 (3.5-5.2) g/dL Globulin 4.1 g/dL Albumin/Globulin Ratio 1.0 Amylase (25-115) U/L Urine Opiates Screen (NEGATIVE) Ur Oxycodone Screen (NEGATIVE) Ur Propoxyphene Screen (NEGATIVE) Ur Barbituates Screen (NEGATIVE) Ur Tricyclics Screen (NEGATIVE) Ur Phencyclidine Scrn (NEGATIVE) Ur Amphetamine Screen (NEGATIVE) Urine MDMA Screen (NEGATIVE) U Benzodiazepines Scrn (NEGATIVE) U Cocaine Metab Screen (NEGATIVE) U Marijuana (THC) Screen (NEGATIVE) Ethyl Alcohol 0.22 H* (<0.03) % 11/03/19 11/03/19 Range/Units 10:45 11:04 WBC (4.5-12.0) X10-3/uL RBC (4.30-5.75) x10(6)uL Hgb (13.5-17.8) g/dL Hct (30.0-51.3) % MCV (80-96) fL MCH (27.7-33.6) pg MCHC (32.2-35.4) g/dL RDW (11.5-15.5) % Plt Count (125-369) X10(3)uL Sodium (135-145) mmol/L Potassium (3.5-5.3) mmol/L Chloride (100-110) mmol/L Carbon Dioxide (21-32) mmol/L BUN (7-18) mg/dL Creatinine (0.70-1.30) mg/dL Est Cr Clr Drug Dosing Estimated GFR (MDRD) (>60) BUN/Creatinine Ratio (9-20) Glucose (80-116) mg/dL Calcium (8.6-10.2) mg/dL Total Bilirubin (0.1-1.3) mg/dL AST (5-25) IU/L ALT (12-36) U/L Alkaline Phosphatase (56-112) IU/L Total Protein (6.0-8.0) g/dL Albumin (3.5-5.2) g/dL Globulin g/dL Albumin/Globulin Ratio Amylase 29 (25-115) U/L Urine Opiates Screen Negative (NEGATIVE) Ur Oxycodone Screen Negative (NEGATIVE) Ur Propoxyphene Screen Negative (NEGATIVE) Ur Barbituates Screen Negative (NEGATIVE) Ur Tricyclics Screen Negative (NEGATIVE) Ur Phencyclidine Scrn Negative (NEGATIVE) Ur Amphetamine Screen Negative (NEGATIVE) Urine MDMA Screen Negative (NEGATIVE) U Benzodiazepines Scrn Negative (NEGATIVE) U Cocaine Metab Screen Negative (NEGATIVE) U Marijuana (THC) Screen Negative (NEGATIVE) Ethyl Alcohol (<0.03) % Medications Generic Name Dose Route Start Last Admin Trade Name Freq PRN Reason Stop Dose Admin Sodium Chloride 10 ml 11/03/19 11:53 11/03/19 12:08 Saline Flush FLUSH 10 ml ASDIRECTED PRN Administration Keep Vein Open Discontinued Medications Generic Name Dose Route Start Last Admin Trade Name Anay PRN Reason Stop Dose Admin Al Hydroxide/Mg Hydroxide 30 ml 11/03/19 16:54 11/03/19 17:12 Mag-Al Susp PO 11/03/19 16:55 30 ml NOW STA Administration Lorazepam 1 mg 11/03/19 10:36 11/03/19 10:54 Ativan PO 11/03/19 10:37 1 mg ONETIME ONE Administration Lorazepam 1 mg 11/03/19 11:18 11/03/19 11:25 Ativan PO 11/03/19 11:19 1 mg ONETIME ONE Administration Lorazepam 1 mg 11/03/19 11:44 11/03/19 11:49 Ativan PO 11/03/19 11:45 1 mg ONETIME ONE Administration Lorazepam 1 mg 11/03/19 16:54 11/03/19 17:12 Ativan PO 11/03/19 16:55 1 mg ONETIME ONE Administration Lorazepam 1 mg 11/03/19 18:01 Ativan PO 11/03/19 18:02 ONETIME ONE Ondansetron HCl 4 mg 11/03/19 10:43 11/03/19 10:46 Zofran Odt PO 11/03/19 10:44 4 mg ONETIME ONE Administration Ondansetron HCl 4 mg 11/03/19 16:54 11/03/19 17:02 Zofran Odt PO 11/03/19 16:55 4 mg ONETIME ONE Administration Thiamine HCl 100 mg 11/03/19 10:38 11/03/19 10:54 Vitamin B-1 PO 11/03/19 10:39 100 mg ONETIME ONE Administration Re-Assessment/Re-Exam: We were unable to secure a detox facility for him within an acceptable distance for his mother to transport. Will send home with Ativan and Zofran and have him recheck in the clinic tomorrow. Mother will stay with him tonight. Departure - Departure Time of Disposition: 18:30 Disposition: Home, Self-Care 01 Condition: Fair Clinical Impression: Thrombocytopenia Alcohol intoxication Qualifiers: Complication of substance-induced condition: with unspecified complication Qualified Code(s): F10.929 - Alcohol use, unspecified with intoxication, unspecified Alcohol withdrawal Qualifiers: Complication of substance-induced condition: uncomplicated Qualified Code(s): F10.230 - Alcohol dependence with withdrawal, uncomplicated Alcoholic hepatitis Qualifiers: Ascites presence: without ascites Qualified Code(s): K70.10 - Alcoholic hepatitis without ascites Leukopenia Qualifiers: Leukopenia type: unspecified Qualified Code(s): D72.819 - Decreased white blood cell count, unspecified - Discharge Information *PRESCRIPTION DRUG MONITORING PROGRAM REVIEWED*: No *COPY OF PRESCRIPTION DRUG MONITORING REPORT IN PATIENT LOREN: No Referrals: Yonas Edmondson PA [Primary Care Provider] - Forms: ED Department Discharge Additional Instructions: Take lorazepam 0.5 mg (2) every 3 hrs as needed for tremors. Take Zofran ODT 4 mg every 6 hrs as needed for nausea. No alcohol. Recheck with your provider tomorrow. Sepsis Event Note (ED) - Evaluation Sepsis Screening Result: No Definite Risk - Focused Exam Vital Signs: Vital Signs Temp Pulse Resp BP Pulse Ox 11/03/19 15:30 36.4 C 88 17 120/59 L 97 11/03/19 12:00 102 H 16 135/92 H 100 11/03/19 10:15 36.6 C 100 19 143/98 H 99 - My Orders Last 24 Hours: My Active Orders 11/03/19 11:53 Sodium Chloride 0.9% [Saline Flush] 10 ml FLUSH ASDIRECTED PRN Saline Lock Insert [OM.PC] Routine - Assessment/Plan Last 24 Hours: My Active Orders 11/03/19 11:53 Sodium Chloride 0.9% [Saline Flush] 10 ml FLUSH ASDIRECTED PRN Saline Lock Insert [OM.PC] Routine
[2019-11-03] MEDS ORDERED: Sodium Chloride 0.9% 10 ML Syringe FLUSH PRN (11:53)
[2019-11-03] MEDS ORDERED: Aluminum Hydroxide/Magnesium Hydroxide Susp 30 ML Cup PO STA (16:54)
== END 2019-11-03 18:45 | disposition home or self-care (01) ==
LOC: FB.ED 10:04
DX: F10.229 Alcohol dependence with intoxication, unspecified (principal); F10.239 Alcohol dependence with withdrawal, unspecified; K70.10 Alcoholic hepatitis without ascites; D72.819 Decreased white blood cell count, unspecified; D69.6 Thrombocytopenia, unspecified; J44.9 Chronic obstructive pulmonary disease, unspecified
CPT/HCPCS: 36415; 80053; 80305; 80307; 82150; 85027; 99284; A9270

== ENCOUNTER 2022-03-31 23:33 | Emergency (ER) | payer MEDICAID ==
[2022-04-01 00:51] LABS: ESTIMATED GFR 108 mL/min (>60)
[2022-04-01 01:05] LABS: ACETAMINOPHEN < 2 ug/mL (<2)
[2022-04-01] MEDS ORDERED: Acetaminophen 325 MG Tab PO PRN (02:25)
[2022-04-01] MEDS ORDERED: Acetaminophen 500 MG Tab PO ONE (13:37)
== END 2022-04-01 13:45 ==
LOC: FB.ED 23:33
DX: S01.112A Laceration without foreign body of left eyelid and periocular area, initial encounter (principal); R45.851 Suicidal ideations; J44.9 Chronic obstructive pulmonary disease, unspecified; Z20.822 Contact with and (suspected) exposure to COVID-19; W22.09XA Striking against other stationary object, initial encounter
CPT/HCPCS: 36415; 70450; 72125; 80053; 80143; 80179; 80307; 84443; 85025; 87635; 99285; A9270; U0002